=== PATIENT | female | born 1960 | race Caucasian/White ===

== ENCOUNTER 2018-06-20 11:12 | Emergency (ER) | payer BC, OTHER ==
--- NOTE | 2018-06-20 11:24 | ED.PDOC ---
History of Present Illness - General Chief Complaint: Chest Pain/NC Stated Complaint: chest tightness Time Seen by Provider: 06/20/18 11:21 Source: patient Exam Limitations: no limitations - History of Present Illness Initial Comments: Aggie Smith 58 y/o female stated that she had cramp like pain on her left lower extremity this am as she was on her barn then went back to their house drank some tea and felt generalized body cramps followed by chest discomfort.No diaphoresis,nausea/vomiting,sob.Denies history of heart disease in the past.no chronic medical problems. She stated had been under lots of stress in the family. Timing/Duration: 4-6 hours Severity: moderate Location: other - chest pressure Activities at Onset: activity Prior Chest Pain/Cardiac Workup: no prior chest pain, no prior cardiac workup Improving Factors: nothing Worsening Factors: nothing Nitro Today/Relief: 0.4 mg x 1 Aspirin Treatment Today: 325 mg x 1 Associated Symptoms: other - see hpi Allergies/Adverse Reactions: Allergies Amoxicillin [From Augmentin] Allergy (Verified 06/20/18 11:25) Clavulanic Acid [From Augmentin] Allergy (Verified 06/20/18 11:25) Tramadol Allergy (Verified 06/20/18 11:26) Home Medications: Ambulatory Orders Acetaminophen W/ Codeine [Tylenol w/Codeine 300-30 mg] 1 tab PO Q6HRS #20 tab Nitroglycerin 0.4 mg Tab [Nitrostat] 0.4 ea SL .Q5M #1 bottle 06/20/18 Review of Systems - Review of Systems Constitutional: States: no symptoms reported EENTM: States: no symptoms reported Respiratory: States: no symptoms reported Cardiology: States: see HPI Gastrointestinal/Abdominal: States: no symptoms reported Genitourinary: States: no symptoms reported Musculoskeletal: States: see HPI Skin: States: no symptoms reported Neurological: States: no symptoms reported Endocrine: States: no symptoms reported Past Medical History (General) - Patient Medical History Hx Seizures: No Hx Asthma: No Hx Cardiac Disorders: No Surgical History: other - laparoscopic explore lap-endometriosis - Social History Hx Tobacco Use: No Hx Alcohol Use: No Hx Substance Use: No Hx Physical Abuse: No Hx Emotional Abuse: No Hx Suspected Abuse: No - Female History Patient is a Female of Child Bearing Age (10 -59 yrs old): No Family Medical History - Family History Father Family History: Unknown Living Status: Cause of : NC Hx Cardiac Disease: Yes - dad Physical Exam - Physical Exam General Appearance: Alert, Comfortable, No apparent distress Eyes, Ears, Nose, Throat Exam: normal ENT inspection, TMs normal Neck: full range of motion, supple Respiratory: lungs clear, normal breath sounds, no respiratory distress Cardiovascular/Chest: normal peripheral pulses, regular rate, rhythm, no murmur Gastrointestinal/Abdominal: normal bowel sounds, non tender, soft, no organomegaly Neurologic: alert, oriented x 3 Skin Exam: normal color, warm/dry Lymphatic: no adenopathy Progress - Progress Progress: 06/20/18 13:35 Vital Signs - 8 hr 06/20/18 06/20/18 11:19 12:16 Temperature 97.3 F L Pulse Rate [ 85 73 Left Brachial] Respiratory 20 18 Rate Blood Pressure 170/94 153/78 [Left Arm] O2 Sat by Pulse 95 94 L Oximetry - Results/Orders Results/Orders: 06/20/18 11:22 Telemetry .ONCE Sodium Chloride 0.9% (Flush) [Saline Flush Syringe] 10 ml IV PRN PRN EKG Stat Pulse Ox Stat Laboratory Results - last 24 hr 06/20/18 06/20/18 06/20/18 11:22 11:22 11:23 WBC 5.3 RBC 5.10 Hgb 15.5 Hct 46.6 MCV 91.3 MCH 30.4 MCHC 33.3 RDW 13.5 Plt Count 212 MPV 8.7 Absolute Neuts (auto) 3.00 Absolute Lymphs (auto) 1.60 Absolute Monos (auto) 0.50 Absolute Eos (auto) 0.10 Absolute Basos (auto) 0.00 Neutrophils % 57.0 Lymphocytes % 30.9 Monocytes % 9.3 H Eosinophils % 2.3 Basophils % 0.5 PT 9.0 INR 0.90 PTT (SP) 25.6 D-Dimer, Quantitative 0.83 H* Sodium 139 Potassium 4.2 Chloride 106 Carbon Dioxide 24 Anion Gap 13.2 BUN 17 Creatinine 0.70 BUN/Creatinine Ratio 24.3 H Random Glucose 110 H Serum Osmolality 279.7 Calcium 9.7 Magnesium 2.1 Total Bilirubin 0.3 Direct Bilirubin < 0.1 Indirect Bilirubin 0.2 AST 23 ALT 29 Alkaline Phosphatase 53 Creatine Kinase 194 H CK-MB (CK-2) 2.8 CK-MB (CK-2) % Not Reportable Troponin I < 0.02 B-Natriuretic Peptide < 5.0 Serum Total Protein 8.0 Albumin 4.4 Urine Opiates Screen Negative Urine Barbiturates Negative Ur Phencyclidine Scrn Negative U Amphetamin/Meth Scrn Negative U Benzodiazepines Scrn Positive H U Cocaine Metab Screen Negative U Cannabinoids Screen Negative 06/20/18 13:53 WBC RBC Hgb Hct MCV MCH MCHC RDW Plt Count MPV Absolute Neuts (auto) Absolute Lymphs (auto) Absolute Monos (auto) Absolute Eos (auto) Absolute Basos (auto) Neutrophils % Lymphocytes % Monocytes % Eosinophils % Basophils % PT INR PTT (SP) D-Dimer, Quantitative Sodium Potassium Chloride Carbon Dioxide Anion Gap BUN Creatinine BUN/Creatinine Ratio Random Glucose Serum Osmolality Calcium Magnesium Total Bilirubin Direct Bilirubin Indirect Bilirubin AST ALT Alkaline Phosphatase Creatine Kinase CK-MB (CK-2) CK-MB (CK-2) % Troponin I < 0.02 B-Natriuretic Peptide Serum Total Protein Albumin Urine Opiates Screen Urine Barbiturates Ur Phencyclidine Scrn U Amphetamin/Meth Scrn U Benzodiazepines Scrn U Cocaine Metab Screen U Cannabinoids Screen discuss all test results with patient and also recommended hospital obs but wants to make appointment with assistant to the dean Dr. Correa for further cardiac evaluation - EKG/XRAY/CT EKG: Sinus, no ST T wave changes Comments: HR-78 XRAY: chest - no acute abnormalities CT Ordered: Yes - CTA-chest NO Pulmonary embolus Departure - Departure Clinical Impression: Chest discomfort, Elevated d-dimer Lower limb pain, lateral Qualifiers: Laterality: left Qualified Code(s): M79.605 - Pain in left leg Time of Disposition: 14:34 Disposition: Discharge to Home or Self Care Condition: Fair Departure Forms: ED Discharge - Pt. Copy, Patient Portal Self Enrollment Instructions: DI for Chest Pain Referrals: Brennan Olson MD [Primary Care Provider] - 1-2 Weeks Prescriptions: Acetaminophen W/ Codeine [Tylenol w/Codeine 300-30 mg] 1 tab PO Q6HRS #20 tab Nitroglycerin 0.4 mg Tab [Nitrostat] 0.4 ea SL .Q5M #1 bottle Home Medications: Ambulatory Orders Acetaminophen W/ Codeine [Tylenol w/Codeine 300-30 mg] 1 tab PO Q6HRS #20 tab Nitroglycerin 0.4 mg Tab [Nitrostat] 0.4 ea SL .Q5M #1 bottle 06/20/18 Additional Instructions: Return to emergency room as needed;need to sign up with primary MD or follow up with assistant to the dean of choice; Take Baby Opal aspirin-81 mg daily(over the counter)
[2018-06-20 11:25] VITALS: TEMP 97.3
[2018-06-20] MEDS: ASPIRIN TABLET 325 MG TAB PO ONE (11:31)
[2018-06-20] MEDS: SODIUM CHLORIDE 0.9% (FLUSH) 10 ML SYG IV PRN (11:32)
[2018-06-20] MEDS: NITROGLYCERIN 0.4 MG 25 EA TAB SL ONE (11:32)
--- NOTE | 2018-06-20 11:40 | RAD ---
PROCEDURE: XR CHEST 1 VIEW HISTORY: pain COMPARISON: None TECHNIQUE: Single projection of the chest was done. FINDINGS: The lung pelayo are well inflated . There are no discrete airspace infiltrates, pneumothoraces or pleural effusions. The pulmonary vascularity is normal. The cardiomediastinal silhouette is unremarkable for patient's age and sex. IMPRESSION: There is no acute pleural-parenchymal process seen in the imaged lung pelayo. Location of Interpretation: Teleradiology Electronically signed by: Chepe Riley MD 06/20/2018 11:[address] [facility] Workstation: [id number]
[2018-06-20] MEDS: SODIUM CHLORIDE 0.9% 1000ML 1,000 ML IVS ONE (13:02)
--- NOTE | 2018-06-20 13:15 | CT ---
PROCEDURE: CTA Chest HISTORY: positive d -dimer;chest discomfort Indication: Same as above Comparison: None Technique: CT of the chest was done with intravenous contrast followed by CT angiography of the pulmonary arteries. Coronal, Sagittal and 3D volumetric MIP reconstructions were generated from the acquired data. The patient was injected with radiographic contrast intravenously, without any documented immediate adverse reactions. This exam was performed according to our departmental dose-optimization program, which includes automated exposure control, adjustment of the mA and/or KV according to the patient's size and/or use of iterative reconstruction technique. FINDINGS: There is no visualization of filling defects in the main pulmonary trunk, main right and left pulmonary arteries or their lower order branches to suggest pulmonary embolism. The bilateral main pulmonary arteries are normal in caliber. There is no evidence of interventricular septal deviation or filling defects in the cardiac chambers. There are no discrete airspace infiltrates, pneumothoraces or pleural effusions. The trachea, bilateral mainstem bronchi and the bilateral main segmental bronchi are patent without any intraluminal mass lesions. There is no gross evidence of clinically significant thoracic aortic aneurysm or thoracic aortic dissection. There is no clinically significant pericardial effusion. There are no pathologically enlarged lymph nodes in the mediastinum, bilateral hilar, bilateral supraclavicular or the bilateral axillary regions. The thoracic bony rib cage appears grossly unremarkable. The visualized thoracic spine shows mild multilevel degenerative change. There is a small hiatal hernia Limited evaluation of the evaluated upper abdomen does not show any gross abnormalities. IMPRESSION: There is no pulmonary embolism, airspace infiltrates or pleural effusions Electronically signed by: Chepe Riley MD 06/20/2018 1:14 PM [employer] Workstation: [id number]
[2018-06-20 14:56] VITALS: BP 128/90; O2SAT 98
== END 2018-06-20 14:51 | disposition home or self-care (01) ==
LOC: ER 11:12
DX: R07.89 Other chest pain (principal); R79.89 Other specified abnormal findings of blood chemistry; M79.605 Pain in left leg; Z88.8 Allergy status to other drugs, medicaments and biological substances; Z88.1 Allergy status to other antibiotic agents
CPT/HCPCS: 71045; 71275; 80048; 80076; 80307; 82550; 82553; 83880; 84484; 85025; 85379; 85610; 85730; 93005; J7030

== ENCOUNTER → 2019-07-05 | Outpatient (CLI) | payer BC | LOC: LAB.O 12:11 | PROVIDERS: ATTEND Registered Nurse General Practice | DX: R07.9 Chest pain, unspecified (principal); Z13.29 Encounter for screening for other suspected endocrine disorder ==

== ENCOUNTER 2019-08-29 16:24 | Emergency (ER) | payer BC ==
[2019-08-29] MEDS ORDERED: SODIUM CHLORIDE 0.9% 1000ML 1,000 ML IVS ONE (17:07)
[2019-08-29] MEDS ORDERED: SODIUM CHLORIDE 0.9% (FLUSH) 10 ML SYG IV PRN (17:07)
[2019-08-29 17:09] VITALS: TEMP 97.7; O2SAT 98
[2019-08-29] MEDS ORDERED: DICYCLOMINE HCL INJ 20 MG/2 ML AMP IM ONE (17:09)
--- NOTE | 2019-08-29 18:18 | RAD ---
EXAM: XR Chest, 1 View CLINICAL HISTORY: The patient is 59 years old and is Female; sob TECHNIQUE: Frontal view of the chest. COMPARISON: Chest radiograph from 06/20/2018 FINDINGS: LUNGS: Unremarkable. No consolidation. PLEURAL SPACE: Unremarkable. No pneumothorax. HEART: No significant enlargement of the cardiac silhouette. MEDIASTINUM: Unremarkable. BONES/JOINTS: No acute osseous findings. IMPRESSION: No acute findings visualized in the chest. Electronically signed by: Tianna Smalls MD 08/29/2019 6:17 PM [facility]
--- NOTE | 2019-08-29 19:02 | CT ---
PROCEDURE: CT Abdomen/Pelvis w/Contrast CLINICAL HISTORY: 59 years Female abdominal pain TECHNIQUE: Contiguous axial images obtained through the abdomen and pelvis following intravenous contrast administration. Coronal and sagittal reformatted images provided. This CT exam was performed according to our departmental dose-optimization program, which includes one or more of the following dose reduction techniques: automated exposure control, adjustment of the mA and/or kV according to patient size, and/or use of iterative reconstruction technique. COMPARISON: No prior exams provided for comparison. FINDINGS: The appendix is normal. There is no bowel inflammation, obstruction, free intraperitoneal air, or ascites. Focal fatty infiltration of the liver along the falciform ligament. Bilateral parapelvic renal cysts without hydronephrosis or pyelonephritis on either side. The lung bases, biliary tree, gallbladder, pancreas, spleen, adrenal glands, uterus, ovaries, urinary bladder, and osseous structures are unremarkable. Small fat-containing umbilical hernia. IMPRESSION: Small fat-containing umbilical hernia. No other acute abdominal or pelvic abnormalities. Electronically signed by: Haley White MD 08/29/2019 7:00 PM [facility]
--- NOTE | 2019-08-29 19:11 | ED.PDOC ---
History of Present Illness - General Chief Complaint: Abdominal Pain Stated Complaint: abd pain with swelling Time Seen by Provider: 08/29/19 17:07 - History of Present Illness Initial Comments: c/o having abdominal pain around umbilical hernia since 1 day , pain is moving to the LUQ , associated with abdominal fullness , no sob or chest pain Abdominal Pain Onset Location: periumbilical Pain Radiation: LUQ Quality: moderate, intermittent Timing/Duration: 7-24 hours Improving Factors: nothing Worsening Factors: nothing Associated Symptoms: denies symptoms Review of Systems - Review of Systems Constitutional: States: no symptoms reported EENTM: States: no symptoms reported Respiratory: States: no symptoms reported Cardiology: States: no symptoms reported Gastrointestinal/Abdominal: States: see HPI Genitourinary: States: no symptoms reported Musculoskeletal: States: no symptoms reported Skin: States: no symptoms reported Neurological: States: no symptoms reported Endocrine: States: no symptoms reported Hematologic/Lymphatic: States: no symptoms reported Past Medical History (General) - Patient Medical History Hx Seizures: No Hx Stroke: No Hx Asthma: No Hx Cardiac Disorders: No Hx Congestive Heart Failure: No Hx Diabetes: No Hx Cancer: No - Vaccination History Hx Tetanus, Diphtheria Vaccination: No Hx Influenza Vaccination: Yes Hx Pneumococcal Vaccination: No Immunizations Up to Date: No - Social History Hx Tobacco Use: No Hx Alcohol Use: No Hx Substance Use: No Hx Physical Abuse: No Hx Emotional Abuse: No Hx Suspected Abuse: No - Female History Patient is a Female of Child Bearing Age (10 -59 yrs old): No Family Medical History - Family History Father Family History: Unknown Living Status: Cause of : MD Hx Cardiac Disease: Yes - dad Physical Exam - Physical Exam General Appearance: Alert, Comfortable Eyes, Ears, Nose, Throat Exam: PERRL/EOMI, normal ENT inspection Neck: non-tender, full range of motion, supple Respiratory: chest non-tender, lungs clear, normal breath sounds, no respiratory distress, no accessory muscle use Cardiovascular/Chest: regular rate, rhythm Gastrointestinal/Abdominal: non tender, soft Back Exam: normal inspection, no CVA tenderness, no vertebral tenderness Extremity: normal range of motion, non-tender, normal inspection 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0-31.0) 08/29/19 17:24 MCHC 33.7 g/dL (33.0-37.0) 08/29/19 17:24 RDW 14.4 % (11.5-14.5) 08/29/19 17:24 Plt Count 218 K/mm3 (130-400) 08/29/19 17:24 MPV 8.4 fl (7.40-10.4) 08/29/19 17:24 Absolute Neuts (auto) 6.30 K/uL (1.8-6.8) 08/29/19 17:24 Absolute Lymphs (auto) 1.60 K/uL (1.0-3.4) 08/29/19 17:24 Absolute Monos (auto) 0.60 K/uL (0.2-0.8) 08/29/19 17:24 Absolute Eos (auto) 0.10 K/uL (0.0-0.4) 08/29/19 17:24 Absolute Basos (auto) 0.10 K/uL (0.0-0.1) 08/29/19 17:24 Neutrophils % 72.5 % (42.0-78.0) 08/29/19 17:24 Lymphocytes % 18.1 % (20.0-50.0) L 08/29/19 17:24 Monocytes % 7.4 % (2.0-9.0) 08/29/19 17:24 Eosinophils % 1.3 % (1.0-5.0) 08/29/19 17:24 Basophils % 0.7 % (0.0-2.0) 08/29/19 17:24 Sodium 140 mmol/L (135-145) 08/29/19 17:24 Potassium 3.8 mmol/L (3.6-5.0) 08/29/19 17:24 Chloride 109 mmol/L (101-111) 08/29/19 17:24 Carbon Dioxide 24 mmol/L (21-31) 08/29/19 17:24 Anion Gap 10.8 (12-18) L 08/29/19 17:24 BUN 16 mg/dL (7-18) 08/29/19 17:24 Creatinine 0.94 mg/dL (0.6-1.3) 08/29/19 17:24 BUN/Creatinine Ratio 17.0 (10-20) 08/29/19 17:24 Random Glucose 156 mg/dL (70-105) H 08/29/19 17:24 Serum Osmolality 283.8 mOsm/L (275-295) 08/29/19 17:24 Calcium 9.2 mg/dL (8.4-10.2) 08/29/19 17:24 Total Bilirubin 0.4 mg/dL (0.2-1.0) 08/29/19 17:24 Direct Bilirubin < 0.1 mg/dL (0-0.2) 08/29/19 17:24 Indirect Bilirubin 0.3 mg/dL (0.2-0.8) 08/29/19 17:24 AST 18 IU/L (10-42) 08/29/19 17:24 ALT 23 IU/L (10-60) 08/29/19 17:24 Alkaline Phosphatase 50 IU/L (42-121) 08/29/19 17:24 Troponin I < 0.02 ng/mL (0.01-0.05) 08/29/19 17:24 Serum Total Protein 7.2 gm/dL (6.4-8.2) 08/29/19 17:24 Albumin 4.0 g/dl (3.2-5.5) 02/09/20 17:24 Lipase 40 U/L (22-51) 08/29/19 17:24 Urine Color Yellow (Yellow) 08/29/19 17:53 Urine Appearance Clear (Clear) 08/29/19 17:53 Urine pH 5.5 (4.5-7.8) 08/29/19 17:53 Ur Specific [place] >= 1.030 (1.005-1.030) 08/29/19 17:53 Urine Protein Negative mg/dL 08/29/19 17:53 Urine Glucose (UA) Negative mg/dL (Negative) 08/29/19 17:53 Urine Ketones Negative mg/dL (NEGATIVE) 08/29/19 17:53 Urine Blood Trace-intact (Negative) H 08/29/19 17:53 Urine Nitrite Negative 08/29/19 17:53 Urine Bilirubin Negative (NEGATIVE) 08/29/19 17:53 Urine Urobilinogen 0.2 mg/dL (0.2-1.0) 08/29/19 17:53 Ur Leukocyte Esterase Negative (Negative) 08/29/19 17:53 Urine RBC 0-1 /hpf 08/29/19 17:53 Urine WBC 0-1 /hpf 08/29/19 17:53 Ur Epithelial Cells 1-3 /hpf 08/29/19 17:53 Urine Bacteria 0 08/29/19 17:53 - EKG/XRAY/CT EKG: Sinus Departure - Departure Clinical Impression: Abdominal pain Time of Disposition: 19:12 Disposition: Discharge to Home or Self Care Condition: Good Departure Forms: ED Discharge - Pt. Copy, Patient Portal Self Enrollment Instructions: DI for Abdominal Pain-Adult Diet: resume usual diet Activity: increase activity as tolerated, walking as tolerated Referrals: COLE SHABAZZ IV, PSYCHODRAMATIST [Primary Care Provider] - 1-2 Weeks Home Medications: Ambulatory Orders Acetaminophen W/ Codeine [Tylenol w/Codeine 300-30 mg] 1 tab PO Q6HRS #20 tab 06/20/18 Nitroglycerin 0.4 mg Tab [Nitrostat] 0.4 ea SL .Q5M #1 bottle 06/20/18
[2019-08-29 19:46] VITALS: BP 155/76
== END 2019-08-29 19:46 | disposition home or self-care (01) ==
LOC: ER 16:24
DX: R10.12 Left upper quadrant pain (principal); K42.9 Umbilical hernia without obstruction or gangrene
CPT/HCPCS: 36415; 71045; 74177; 80048; 80076; 81001; 83690; 84484; 85025; 93005; J0500; J7030

== ENCOUNTER → 2020-01-18 | Outpatient (CLI) | payer BC ==
--- NOTE | 2020-01-18 13:14 | RAD ---
EXAM DESCRIPTION: Hand,Left 3 Views CLINICAL HISTORY: PAIN COMPARISON: None Available. TECHNIQUE: AP, LATERAL, AND OBLIQUE FINDINGS: Three-view left hand shows no fracture or dislocation. There is no bone lesion. There are no significant arthritic changes. There is no radiopaque foreign body. IMPRESSION: 1. Negative left hand three views. Electronically signed by: Sidney Washburn MD 01/18/2020 1:13 PM CDT
== END ==
LOC: RAD 12:09
PROVIDERS: ATTEND Registered Nurse General Practice
DX: M79.645 Pain in left finger(s) (principal)